=== PATIENT | male | born 1990 | race Caucasian/White ===

== ENCOUNTER 2023-04-15 20:26 | Emergency (ER) | payer OTHER, SELFPAY ==
[2023-04-15 20:39] VITALS: BP 136/70; PULSE 71; RESP 16; TEMP 36.9; O2SAT 97; BMI 27.6
[2023-04-15 21:10] LABS: Add Manual Diff / Slide Review NO; Basophils Absolute Auto 0 /uL (0-100); Basophils Percent Auto 0.5 % (0-2); Eosinophils Absolute Auto 300 /uL (0-450); Eosinophils Percent Auto 4.7 % (2-4); Hematocrit 41.6 % (41-53); Hemoglobin 14.4 g/dL (13.5-17.5); Lymphocytes Absolute Auto 1900 /uL (1100-4500); Lymphocytes Percent Auto 28.4 % (25-40); Mean Corpuscular HGB Conc 34.6 % (30-36); Mean Corpuscular Hemoglobin 29.3 PG (26-34); Mean Corpuscular Volume 84.6 fL (80-100); Monocytes Absolute Auto 300 /uL (0-900); Monocytes Percent Auto 4.9 % (3-14); Neutrophils Absolute Auto 4100 /uL (1500-7000); Neutrophils Percent Auto 61.5 % (50-75); Platelet Count 280 X10^3/uL (150-400); Red Blood Cell Count 4.92 X10^6/uL (4.5-5.9); Red Cell Distribution Width 13.2 % (11.6-14.8); White Blood Cell Count 6.7 X10^3/uL (4.5-11.0)
[2023-04-15 21:19] LABS: Alanine Aminotransferase 34 IU/L (<50); Albumin 4.7 g/dL (3.5-5.0); Albumin Globulin Ratio 1.6 (1.0-2.8); Alkaline Phosphatase 45 U/L (38-126); Aspartate Aminotransferase 23 IU/L (17-59); BUN Creatinine Ratio 24.3 (6-22); Bilirubin Total 0.4 mg/dL (0.2-1.3); Blood Urea Nitrogen 18 mg/dL (9-20); Calcium 9.3 mg/dL (8.4-10.2); Carbon Dioxide 27 mmol/L (22-32); Chloride 102 mmol/L (98-107); Estimated Glomerular Filt Rate > 60 mL/min (>60); Globulin 2.9 g/dL (1.7-4.1); Glucose 108 mg/dL (70-100); HEMOLYSIS 15 (0-50); Lipase 27 U/L (23-300); Potassium 4.2 mmol/L (3.4-5.1); Sodium 137 mmol/L (137-145); Total Protein 7.6 g/dL (6.3-8.2)
--- NOTE | 2023-04-15 22:45 | DI.CT.S_ITS ---
PROCEDURE: CT ABDOMEN PELVIS W CON INDICATIONS: LLQ abd pain and RUQ abd pain with hx of diverticulitis TECHNIQUE: After the administration of IV contrast, axial sections were acquired from the lung bases to the pubic symphysis. Coronal and sagittal reformats were performed. For radiation dose reduction, the following was used: automated exposure control, adjustment of mA and/or kV according to patient size. COMPARISON: None. FINDINGS: Image quality: Excellent. Lung bases: There is a thin wall cyst within the right lower lobe with an associated soft tissue nodule measuring up to 2.8 cm inferiorly extending along the right hemidiaphragm. Heart: Heart is normal in size. ABDOMEN: Liver: No mass lesion. Gallbladder: Within normal limits without calcified gallstones. Biliary ducts: No biliary ductal dilatation. Pancreas: Unremarkable. Spleen: Normal in size. There are punctate calcifications in the spleen consistent with sequelae of old granulomas disease. Adrenal Glands: No adrenal nodules. Kidneys and Ureters: No hydronephrosis. Stomach and Bowel: Stomach, small bowel loops, and colon are normal in caliber and wall thickness. There are a few colonic diverticula without acute diverticulitis. Peritoneum: No abnormal intraperitoneal fluid. No free air. Ventral Wall: No hernia. Abdominal Nodes: No retroperitoneal or mesenteric adenopathy by size criteria. Vessels: Aorta and inferior vena cava are normal in size. PELVIS: Pelvic Organs: Unremarkable. Bladder: Unremarkable. Pelvic Nodes: No enlarged lymph nodes. Miscellaneous: No inguinal hernias are seen. Bones: Visualized osseous structures demonstrate no suspicious focal lesions. IMPRESSION: 1. Cystic lesion in the right lower lobe with eccentric nodular soft tissue inferiorly extending to the right hemidiaphragm. The findings are suspicious for a neoplasm within a cavitary lesion. The differential includes a superimposed infection secondary to a pneumatocele. Consider further evaluation with PET-CT. 2. Colonic diverticulosis without acute diverticulitis. Dictated by: Carlos Desai M.D. on 04/16/2023 at 0:01 Approved by: Carlos Desai M.D. on 04/16/2023 at 0:07
--- NOTE | 2023-04-15 22:45 | ED_ITS ---
HPI - General Adult General Chief complaint: Abdominal Pain Stated complaint: Diverticulosis attack Time Seen by Provider: 04/15/23 20:56 Source: patient Mode of arrival: Ambulatory Limitations: no limitations History of Present Illness HPI narrative: Patient is a 33-year-old male. Has a history of diverticulitis. Has had 3 episodes in the past. After his 1st episode he did have a colonoscopy. Stated that a couple days ago he started to have pain in his left side/left back. He was sent to an outside walk-in clinic. Was started on antibiotics. He started on Augmentin. He is had approximately 1 full day of this medication. He states the symptoms are not improving. He denies any blood in the stool. Some nausea. No fevers. He also states that when the prior doctor pushed on his abdomen he did have some tenderness in the right side but his specific tenderness today is on this left side. Related Data Allergies Allergy/AdvReac Type Severity Reaction Status Date / Time No Known Drug Allergies Allergy Verified 04/15/23 20:47 Review of Systems Constitutional Constitutional: Reports system reviewed and no additional complaints, except as documented Respiratory Respiratory: Reports system reviewed and no additional complaints, except as documented Gastrointestinal Gastrointestinal: Reports system reviewed and no additional complaints, except as documented Genitourinary Genitourinary: Reports system reviewed and no additional complaints, except as documented Musculoskeletal Musculoskeletal: Reports system reviewed and no additional complaints, except as documented Integumentary/Breasts Skin/Breast: Reports system reviewed and no additional complaints, except as documented Patient History Medical History Diverticulitis Social History Smoking Status: Current every day smoker Smoking Status: Current every day smoker Substance Use Type: does not use Exam Initial Vital Signs Initial Vital Signs: Vital Signs Temperature 98.4 F 04/15/23 20:39 Pulse Rate 71 04/15/23 20:39 Respiratory Rate 16 04/15/23 20:39 Blood Pressure 136/70 04/15/23 20:39 Pulse Oximetry 97 04/15/23 20:39 Oxygen Delivery Method Room Air 04/15/23 20:39 Const General: cooperative, comfortable and No ill appearing HENMT Head: normal to inspection and normocephalic Resp Effort & Inspection: normal respiratory effort Auscultation: clear to auscultation bilaterally Cardio Rate: regular rate GI Inspection: normal to inspection and non-distended Palpation: soft, No firm, No guarding and tender (Left lower quadrant) Back/Spine/Pelvis Back: No CVA tenderness Skin General: no rashes or lesions noted Neuro General: patient alert, patient awake and moves all extremities Course Orders Ordered: ED Orders 04/15/23 20:47 EKG-12 Lead Stat 04/15/23 20:55 Complete Blood Count AUTO DIFF Stat Comprehensive Metabolic Panel Stat Lipase Stat 04/15/23 22:45 CT abdomen pelvis w con Stat Ondansetron HCl (Ondansetron 4 Mg Odt) 4 mg PO NOW PRN PRN Reason: Nausea And Vomiting Ondansetron HCl (Ondansetron 4 Mg/2 Ml Inj) 4 mg IV NOW PRN PRN Reason: Nausea And Vomiting Discontinued Medications Hydromorphone HCl (Hydromorphone 1 Mg Inj) 1 mg IV NOW ONE Stop: 04/15/23 22:46 Last Admin: 04/15/23 22:50 Dose: 1 mg Documented By: Ondansetron HCl (Ondansetron 4 Mg/2 Ml Inj) 4 mg IV NOW ONE Stop: 04/15/23 22:46 Last Admin: 04/15/23 22:50 Dose: 4 mg Documented By: Vital Signs Vital signs: Vital Signs - 8 hr 04/15/23 20:39 04/15/23 22:52 04/15/23 22:52 Temperature 98.4 F Pulse Rate 71 55 L Respiratory Rate 16 Blood Pressure 136/70 102/65 Pulse Oximetry 97 98 Oxygen Delivery Method Room Air Medical Decision Making Lab Data Lab results reviewed: Yes I reviewed the patient's lab results. 04/15/23 20:55 04/15/23 20:55 Labs: Lab Results 04/15/23 04/15/23 Range/Units 20:55 20:55 WBC 6.7 (4.5-11.0) X10^3/uL RBC 4.92 (4.5-5.9) X10^6/uL Hgb 14.4 (13.5-17.5) g/dL Hct 41.6 (41-53) % MCV 84.6 (80-100) fL MCH 29.3 (26-34) PG MCHC 34.6 (30-36) % RDW 13.2 (11.6-14.8) % Plt Count 280 (150-400) X10^3/uL Neut % (Auto) 61.5 (50-75) % Lymph % (Auto) 28.4 (25-40) % [place] % (Auto) 4.9 (3-14) % Eos % (Auto) 4.7 H (2-4) % Baso % (Auto) 0.5 (0-2) % Neut # (Auto) 4100 (7268-6745) /uL Lymph # (Auto) 1900 (6535-2619) /uL [place] # (Auto) 300 (0-900) /uL Eos # (Auto) 300 (0-450) /uL Baso # (Auto) 0 (0-100) /uL Sodium 137 (137-145) mmol/L Potassium 4.2 (3.4-5.1) mmol/L Chloride 102 (98-107) mmol/L Carbon Dioxide 27 (22-32) mmol/L BUN 18 (9-20) mg/dL Creatinine 0.74 (0.66-1.25) mg/dL Estimated GFR > 60 (>60) mL/min BUN/Creatinine Ratio 24.3 H (6-22) Glucose 108 H (70-100) mg/dL Calcium 9.3 (8.4-10.2) mg/dL Total Bilirubin 0.4 (0.2-1.3) mg/dL AST 23 (17-59) IU/L ALT 34 (<50) IU/L Alkaline Phosphatase 45 (38-126) U/L Total Protein 7.6 (6.3-8.2) g/dL Albumin 4.7 (3.5-5.0) g/dL Globulin 2.9 (1.7-4.1) g/dL Albumin/Globulin Ratio 1.6 (1.0-2.8) Lipase 27 (23-300) U/L Imaging Data CT scan - abdomen/pelvis: Radiologist's Impression: PROCEDURE:? CT ABDOMEN PELVIS W CON ? INDICATIONS:? LLQ abd pain and RUQ abd pain with hx of diverticulitis ? TECHNIQUE:? After the administration of IV contrast, axial sections were acquired from the lung bases to the pubic symphysis.? Coronal and sagittal reformats were performed.? For radiation dose reduction, the following was used:? automated exposure control, adjustment of mA and/or kV according to patient size. ? COMPARISON:? None. ? FINDINGS:? Image quality:? Excellent.? ? Lung bases:? There is a thin wall cyst within the right lower lobe with an associated soft tissue nodule measuring up to 2.8 cm inferiorly extending along the right hemidiaphragm. Heart:? Heart is normal in size. ? ? ABDOMEN: Liver:? No mass lesion. Gallbladder:? Within normal limits without calcified gallstones.? ? Biliary ducts:? No biliary ductal dilatation.? ? Pancreas:? Unremarkable.? ? Spleen:? Normal in size. ? There are punctate calcifications in the spleen consistent with sequelae of old granulomas disease.? Adrenal Glands:? No adrenal nodules.? ? Kidneys and Ureters:? No hydronephrosis.? ? ? Stomach and Bowel:? Stomach, small bowel loops, and colon are normal in caliber and wall thickness.? There are a few colonic diverticula without acute diverticulitis. Peritoneum:? No abnormal intraperitoneal fluid.? No free air.? ? Ventral Wall: ? No hernia.? Abdominal Nodes:? No retroperitoneal or mesenteric adenopathy by size criteria.? Vessels:? Aorta and inferior vena cava are normal in size.? ? PELVIS: Pelvic Organs:? Unremarkable.? ? Bladder:? Unremarkable.? ? Pelvic Nodes: No enlarged lymph nodes.? Miscellaneous: No inguinal hernias are seen. ? ? ? Bones:? Visualized osseous structures demonstrate no suspicious focal lesions. ? IMPRESSION:? ? 1. Cystic lesion in the right lower lobe with eccentric nodular soft tissue inferiorly extending to the right hemidiaphragm.? The findings are suspicious for a neoplasm within a cavitary lesion.? The differential includes a superimposed infection secondary to a pneumatocele.? Consider further evaluation with PET-CT. ? 2. Colonic diverticulosis without acute diverticulitis.? MDM Narrative Medical decision making narrative: Patient's labs are unremarkable. The CT scan of his abdomen and pelvis that showed diverticulosis without signs of acute diverticulitis and certainly no specific acute surgical pathology noted. I did discuss this with him. I will h ave him continue to take his antibiotics since he is already started the course of this. There was also an incidental finding of the cystic lesion into his right lower lung. He does not have any indication today that he is pneumonia. I informed him that this does require further workup from his primary doctor that he is going to require specific further testing such as a PET scan. Patient expressed understanding and agreement of this. Will discharge patient home. Was given return precautions. Discharge Plan Departure Patient Disposition: Home Clinical Impression: Abdominal pain, Lesion of right lung Instructions: DI for Abdominal Pain-Adult Activity Restrictions/Additional Instructions: It is important that you may contact with your primary doctor for follow-up as your going to need further evaluation of the cystic lesion noted in your right lung today. This is most likely going to require a PET scan. I do recommend that you continue to take the antibiotics that you started yesterday. Return to the emergency department for new or worsening symptoms. Referrals: Faizan Echevarria [Primary Care Provider] - Stand Alone Forms: Patient Portal/API, Work Release Note
[2023-04-15] MEDS: ONDANSETRON 4 MG/2 ML INJ IV (22:50)
[2023-04-15] MEDS: HYDROMORPHONE 1 MG INJ IV (22:50)
[2023-04-15 22:52] VITALS: BP 102/65; PULSE 55; O2SAT 98
[2023-04-16 00:38] VITALS: BP 106/65; PULSE 55; RESP 16; O2SAT 95
== END 2023-04-16 00:40 | disposition home or self-care (01) ==
PROVIDERS: Emergency Provider Emergency Medicine
DX: R10.32 Left lower quadrant pain (principal); R91.1 Solitary pulmonary nodule
CPT/HCPCS: 36415; 74177; 80053; 83690; 85025; 96374; 96375; 99284; J1170; J2405; Q9967

== ENCOUNTER 2023-07-05 20:25 | Emergency (ER) | payer OTHER, SELFPAY ==
[2023-07-05 20:34] VITALS: BP 132/83; PULSE 68; RESP 16; TEMP 36.7; O2SAT 98; BMI 28.4
--- NOTE | 2023-07-05 20:38 | ED.GENADULT ---
HPI - General Adult General Chief complaint: Extremity Injury, Lower Stated complaint: Fall t-5, Leg inj, Poss lack of blood flow Time Seen by Provider: 07/05/23 20:29 History of Present Illness HPI narrative: 33-year-old male nonsmoker with noncontributory medical history presents with a chief complaint of some pain in his left lateral knee and ankle as well as some numbness adjacent to his kneecap and near the toes of his left foot after sustaining a fall 5 days ago. He states that he was walking and slipped in hydraulic fluid and fell backwards and that is left knee was flexed and he thinks he rolled his left ankle. He denies any significant pain and is ambulatory but has noticed numbness in the regions noted above. He denies any back pain. He has no head or neck injury. He denies chest pain or shortness of breath. He called the [facility] hotline and was directed to the emergency department for evaluation Related Data Allergies Allergy/AdvReac Type Severity Reaction Status Date / Time No Known Drug Allergies Allergy Verified 07/05/23 20:34 Review of Systems Review of Systems Narrative: GENERAL: Denies chills, fatigue, malaise, fever, sweats. HEENT: Denies sinus pain, ear pain, sore throat, difficulty swallowing, dizziness. RESPIRATORY: Denies dyspnea, cough, wheezing, hemoptysis, sputum. CARDIOVASCULAR: Denies chest pain, palpitations, orthopnea, edema, GASTROINTESTINAL: Denies nausea, vomiting, abdominal pain, diarrhea, constipation, melena. : Denies dysuria, frequency, incontinence, hematuria, urinary retention. MUSCULOSKELETAL: See HPI SKIN: Denies rash, skin lesions, or other NEUROLOGIC: See HPI PSYCHIATRIC: No concerning psychosocial issues. 12 point review of systems is negative except for those stated above Patient History Medical History Diverticulitis Social History Smoking Status: Current every day smoker Smoking Status: Current every day smoker Substance Use Type: does not use Exam Narrative Exam Narrative: GEN: AOx3 and in mild distress EYES: Pupils are equal, round, and reactive to light and accommodation. Extraoccular muscles are intact bilaterally. There is no subconjunctival hemorrhage or exudate. CHEST: Lungs are clear to auscultation bilaterally and free of wheezes, rales, or rhonchi. Heart rate is regular rhythm, there are no murmurs, clicks, rubs, or gallops. There is no chest wall tenderness. ABD: Abdomen is soft and nontender. There is no guarding or rebound. Bowel sounds are normal in all 4 quadrants. There is no mass or organomegaly. EXT: Full and slightly painful range of motion of left knee, no ligamentous laxity, no effusion or erythema, no joint line tenderness medially, slightly painful long lateral joint line and proximal fibula. Negative squeeze test. There is some numbness at the inferior pole of his patella. Minimal swelling and mild tenderness overlying lateral malleolus, no ankle ligamentous laxity, no pain over anterior talus, no pain over medial malleolus. Dorsalis pedis and posterior tibial pulses are palpable, cap refill is less than 2 seconds. Another small area of numbness at the base of the 2nd and 3rd toes essentially overlying the metatarsal phalangeal joint SKIN: Warm, pink, and dry. No erythema or rash Initial Vital Signs Initial Vital Signs: Vital Signs Temperature 98.0 F 07/05/23 20:34 Pulse Rate 68 07/05/23 20:34 Respiratory Rate 16 07/05/23 20:34 Blood Pressure 132/83 07/05/23 20:34 Pulse Oximetry 98 07/05/23 20:34 Oxygen Delivery Method Room Air 07/05/23 20:34 Course Orders Ordered: ED Orders 07/05/23 20:47 XR ankle LT min 3V Stat XR knee LT 3V Stat Vital Signs Vital signs: Vital Signs - 8 hr 07/05/23 20:34 Temperature 98.0 F Pulse Rate 68 Respiratory Rate 16 Blood Pressure 132/83 Pulse Oximetry 98 Oxygen Delivery Method Room Air Medical Decision Making [facility] Narrative Medical decision making narrative: [33] year old patient presents with left knee and ankle injury 5 days ago and now some numbness Multiple etiologies for patient's symptoms considered including, but not limited to: [Sprain versus ligamentous injury versus dislocation versus fracture versus other] Prior Charts reviewed in our EMR Primary Historian: patient Imaging reviewed: Left knee and ankle x-rays demonstrate Patient's symptoms improved over duration of stay with above-stated therapies. Findings and discharge diagnosis discussed with patient/family followed by verbalization of understanding Return precautions discussed with patient/family whom verbalize understanding of diagnosis and plan Discharge Plan Departure Patient Disposition: Home Clinical Impression: Knee sprain, Paresthesia and pain of left extremity Instructions: DI for Knee Sprain Activity Restrictions/Additional Instructions: *You have been diagnosed with [left knee and ankle sprain with mild associated paresthesias. As we discussed your history and physical exam is reassuring and x-ray shows no fracture or dislocation of your knee or ankle. I would expect the numbness your experiencing to be related to inflammation as a consequence of your injury and it should resolve over the next week or 2] *What to do: *Please continue to take your regular medications as directed. *Please follow up with your primary care provider in 2-3 days, call for an appointment. Let them know you were seen in the Emergency Department and that we ask that you be seen in follow up. We will electronically transmit a record of today's note if your PCP is in our system *If you do not have a primary care provider please contact the [facility] Resource line at [phone]. They will ask some questions about your medical history and help get you set up with a doctor in the community. *Return to Emergency Department if you should have any new, worsening or concerning symptoms, such as [fever greater than 101 F, shaking chills, worsening pain, persistent vomiting or other bothersome symptoms] Referrals: Faizan Echevarria [Primary Care Provider] - Stand Alone Forms: Patient Portal/API
--- NOTE | 2023-07-05 20:47 | DI.RAD.S_ITS ---
PROCEDURE: XR KNEE LT 3V INDICATIONS: fall with L knee/ankle pain, numbness TECHNIQUE: 3 views of the knee were acquired. COMPARISON: None. FINDINGS: Bones: No fractures or dislocations. No suspicious bony lesions. Soft tissues: No joint effusion. No suspicious soft tissue calcifications. IMPRESSION: No trauma found, no joint effusion identified. Dictated by: Jaxon Mukherjee M.D. on 07/05/2023 at 21:27 Approved by: Jaxon Mukherjee M.D. on 07/05/2023 at 21:28
--- NOTE | 2023-07-05 20:47 | DI.RAD.S_ITS ---
PROCEDURE: XR ANKLE LT MIN 3V INDICATIONS: fall with ankle/knee pain, swelling, lateral malleolus TECHNIQUE: 3 views of the ankle were acquired. COMPARISON: None. FINDINGS: Bones: No fractures or dislocations. Ankle mortise is normally aligned. No suspicious bony lesions. Soft tissues: No tibiotalar joint effusion. Achilles tendon appears normal. IMPRESSION: No trauma found. Dictated by: Jaxon Mukherjee M.D. on 07/05/2023 at 21:26 Approved by: Jaxon Mukherjee M.D. on 07/05/2023 at 21:27
== END 2023-07-05 21:50 | disposition home or self-care (01) ==
PROVIDERS: Emergency Provider Emergency Medicine
DX: S83.92XA Sprain of unspecified site of left knee, initial encounter (principal); R20.2 Paresthesia of skin; W01.0XXA Fall on same level from slipping, tripping and stumbling without subsequent striking against object, initial encounter
CPT/HCPCS: 73562; 73610; 99283

== ENCOUNTER → 2023-08-12 13:42 | Outpatient (CLI) | payer OTHER, SELFPAY ==
--- NOTE | 2023-08-12 | DI.US.S_ITS ---
PROCEDURE: US FINE NEEDLE ASPIRATION INDICATIONS: Nontoxic multinodular goiter TECHNIQUE: The indications, alternatives, benefits, risks, and complications of the procedure were explained to the patient. Written informed consent was obtained and placed in the chart. The thyroid region was examined sonographically and a site was chosen for ultrasound guided percutaneous sampling. The skin was prepared and draped in the usual fashion, and anesthetized with 1% lidocaine infiltrated from the skin down to the thyroid gland. Multiple passes were then performed, with contents emptied into an appropriate pathology specimen container. A bandage was applied to the area of access at completion of the study. COMPARISON: [facility], , US THYROID, 06/30/2023, 9:04. FINDINGS: Location(s) of lesion(s) sampled: Left inferior thyroid Barre: 22 and 25 gauge hypodermic needles. Number of passes: 7 Medications: 1% lidocaine for local anaesthesia. Complications: None. IMPRESSION: Successful ultrasound-guided thyroid nodule fine needle aspiration, with cytology results pending. Please see chart below for management recommendations based on cytology results. [facility] ReportingRecommendationsNon-diagnostic* Repeat US-guided FNA, with on-site cytology evaluation if possible. * Repeated non-diagnostic nodules without high suspicion US features: close observation vs surgical consult. * Consider surgery if nodule has high suspicion US features, grows >20% in 2 dimensions on followup, or patient has clinical risk factors for malignancy. Benign* If nodule has high suspicion US features: repeat US and FNA within 12 months. * If nodule has low to intermediate suspicion US features: repeat US at 12-24 months. If nodule grows (20% increase in at least 2 dimensions, with minimal increase of 2 mm or >50% change in volume), or development of new suspicious US features, then repeat FNA or continue followup. * If nodule has very low suspicion US features: followup US at >24 months. Atypia of undetermined significance, follicular lesion of undetermined significanceRepeat FNA, molecular testing, followup US, or surgical consult.Follicular neoplasm, suspicious for follicular neoplasmSurgical consult; also consider molecular testing. Suspicious for malignancySurgical consult.MalignantSurgical consult. Approved by: Leonidas Scott M.D. on 08/12/2023 at 15:19
--- NOTE | 2023-08-12 | PATH_ITS ---
Note [facility] Accession Number: [id number] TESTS RESULT FLAG UNITS REF RANGE LAB Clinician Provided Cytology Information No. of containers..02 Previously Prepared Cytology Slide 35 Unknown Storage/container code(s) Source: LEFT INFERIOR THYROI Clinician ICD10: E04.2 DIAGNOSIS: LEFT INFERIOR THYROI SUSPICIOUS FOR NEOPLASM. [place] CATEGORY V. SUSPICIOUS FOR PAPILLARY CARCINOMA. SPECIMEN CONSISTS OF FOLLICULAR CELLS WITH NUCLEAR ENLARGEMENT, NUCLEAR PALLOR WITH GROOVES. INTRANUCLEAR PSEUDOINCLUSIONS ARE RARE. 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 MOLECULAR STUDIES REQUESTED; RESULTS WILL BE REPORTED AN ADDENDUM. Pathologist ICD10: R89.6 Signed out by: Lisbeth Edgar MD, Pathologist NPI- [id number] Performed by: Micheal Ramsay, Java Portal Developer ([facility]) Gross description: 30 CC, PINK, CLEAR RECIEVED: IN CYTOLYT WITH 6 ALCOHOL FIXED AND 6 QUICK STAINED SLIDES ALSO 1 RNA VIAL WAS RECEIVED.VO /VDU 08/13/2023 1112 Local FLAG LEGEND: L-Low Normal,H-High Normal,LL-Alert Low,HH-Alert High <-Panic Low,>-Panic High,A-Abnormal,AA-Critical Abnormal Performed at: 01 =Z [facility] [address] [place] [address], [place] [address] Carlos Garcia MD, Specimen Comment: A courtesy copy of this report has been sent to [facility] Specimen Comment: A duplicate report has been generated due to demographic updates. Performed at: 01 [facility] [address] [address] [facility], [place], [place] [id number] MD Carlos Garcia MD Phone: [phone]
== END ==
PROVIDERS: Referring Provider Otolaryngology; Visit Provider Otolaryngology
DX: E04.2 Nontoxic multinodular goiter (principal)
CPT/HCPCS: 10005

== ENCOUNTER 2023-09-25 20:33 | Emergency (ER) | payer OTHER, SELFPAY ==
[2023-09-25 20:38] VITALS: BP 139/88; PULSE 71; RESP 16; TEMP 36.8; O2SAT 97; BMI 28.7
--- NOTE | 2023-09-25 20:54 | PC.NURSE ---
Dr. Levine at bedside w/ patient and
--- NOTE | 2023-09-25 21:05 | ED_ITS ---
HPI - Wound/Laceration General Chief Complaint: Wound/Laceration Stated Complaint: surgical infection on neck Time Seen by Provider: 09/25/23 20:44 Source: patient and family Mode of arrival: Ambulatory History of Present Illness HPI narrative: Patient is a 33-year-old male. Earlier this week he underwent a total thyroidectomy. He is currently on antibiotics. Is currently on thyroid hormone replacement. Earlier today started noticing some swelling in his neck. There was some redness in his neck as well. No bleeding. No drainage. No problems swallowing. No problems talking. Also some concern about a fever. Did take Tylenol prior to arrival. Related Data Allergies Allergy/AdvReac Type Severity Reaction Status Date / Time No Known Drug Allergies Allergy Verified 07/05/23 20:34 Review of Systems Constitutional Constitutional: Reports system reviewed and no additional complaints, except as documented ENT Ears, Nose, Mouth, and Throat: Reports system reviewed and no additional complaints, except as documented Cardiovascular Cardiovascular: Reports system reviewed and no additional complaints, except as documented Respiratory Respiratory: Reports system reviewed and no additional complaints, except as documented Integumentary/Breasts Skin/Breast: Reports system reviewed and no additional complaints, except as documented Neurologic Neurologic: Reports system reviewed and no additional complaints, except as documented Hematologic/Lymphatic Hematologic/Lymphatic: Reports system reviewed and no additional complaints, except as documented Patient History Medical History Diverticulitis Social History Smoking Status: Former smoker Smoking Status: Former smoker alcohol intake frequency: holidays/special occasions only Substance Use Type: does not use Exam Initial Vital Signs Initial Vital Signs: Vital Signs Temperature 98.3 F 09/25/23 20:38 Pulse Rate 71 09/25/23 20:38 Respiratory Rate 16 09/25/23 20:38 Blood Pressure 139/88 09/25/23 20:38 Pulse Oximetry 97 09/25/23 20:38 Oxygen Delivery Method Room Air 09/25/23 20:38 Const General: cooperative and comfortable Resp Effort & Inspection: normal respiratory effort Skin Other: Surgical incision in the anterior portion of the neck is covered with a Steri- Strips. There is no surrounding erythema. No drainage. No bleeding. There is some swelling in the area. No crepitus felt. Course Vital Signs Vital signs: Vital Signs - 8 hr 09/25/23 20:38 Temperature 98.3 F Pulse Rate 71 Respiratory Rate 16 Blood Pressure 139/88 Pulse Oximetry 97 Oxygen Delivery Method Room Air MDM - Wound/Laceration MDM Narrative Medical decision making narrative: Patient is afebrile. Does have some swelling in the anterior portion of the neck but this very well could be explained because of the surgery he just had earlier this week. There was no surrounding erythema. No bleeding. No crepitus. No drainage. I have low suspicion for infection. He is currently on Keflex provided by the operative surgeon. Is on day 3 of 5 of the Keflex. Had a discussion with the patient and family at bedside regarding options to include not making any changes to his medications and seeing whether things progress over the next 24-48 hours. The other option be is to switch him to a different antibiotic such as doxycycline. My recommendation would be is to keep him on his current antibiotic regimen. Patient and family were okay with this. They were given strict return precautions. They expressed understanding and agreement. Discharge Plan Departure Patient Disposition: Home Clinical Impression: Postoperative complication Activity Restrictions/Additional Instructions: Recommend that you follow all of the postoperative instructions given to you by the surgeon. Keep all of your scheduled medical appointments. Continue all of your antibiotics as directed. Return to the emergency department for new or worsening symptoms. Referrals: Vanessa Garza MD [Primary Care Provider] - Stand Alone Forms: Patient Portal/API
== END 2023-09-25 21:13 | disposition home or self-care (01) ==
PROVIDERS: Emergency Provider Emergency Medicine
DX: R22.1 Localized swelling, mass and lump, neck (principal); T81.9XXA Unspecified complication of procedure, initial encounter
CPT/HCPCS: 99281